=== PATIENT | female | born 1945 | race Caucasian/White ===

== ENCOUNTER 2023-12-24 16:40 | Emergency (ER) | payer OTHER, SELFPAY ==
--- NOTE | ~2023-12-24 | XR_ITS ---
XR shoulder RT min 2V DATE: 12/24/2023 17:43 INDICATION: Fall today. Proximal humerus pain TECHNIQUE: 2 views, AP and near projections COMPARISON: None FINDINGS: There is a comminuted fracture the proximal humerus including longitudinal fracture through the greater tuberosity and transverse fracture through the head of the humerus. No dislocation is no shonda. Normal alignment at the acromioclavicular joint. There is atelectasis at the right lung base. Diffuse osteopenia. IMPRESSION: Comminuted right proximal humeral fracture including relatively nondisplaced transverse h umeral head fracture and longitudinal fracture and mild superolateral displacement of the greater tub erosity Reviewed, dictated and finalized at location J. IMPRESSION: Comminuted right proximal humeral fracture including relatively non displaced transverse humeral head fracture and longitudinal fracture and mild s uperolateral displacement of the greater tuberosity
[2023-12-24 17:02] VITALS: BP 155/80; PULSE 71; RESP 19; TEMP 36.4; O2SAT 98
--- NOTE | 2023-12-24 17:37 | ED.UPPEXIN ---
HPI - Extremity Injury (Upper) General Chief Complaint: Extremity Injury, Upper Stated Complaint: right shoulder injury/cut on right arm Time Seen by Provider: 12/24/23 17:13 Source: family () and RN notes reviewed Mode of arrival: ambulatory Limitations: dementia History of Present Illness HPI narrative: presents patient today complaining of an injury to her right shoulder. Approximately 1 hour prior to arrival, patient got up off the couch, tripped on her shoe, and fell onto her right shoulder onto carpeted floor. No head injury or loss of consciousness. Patient has been grabbing her shoulder and grimacing. She has some significant dementia. Related Data Home Medications Medication Instructions Recorded Confirmed amlodipine 5 mg tablet 5 mg PO DAILY 12/24/23 12/24/23 memantine 5 mg tablet 5 mg PO DAILY 12/24/23 12/24/23 Allergies Allergy/AdvReac Type Severity Reaction Status Date / Time No Known Allergies Allergy Verified 12/24/23 17:13 Review of Systems Review of Systems: MUSCULOSKELETAL: Denies back pain, or myalgia.+ right shoulder injury Unable to complete due to dementia [facility] Past Medical History Medical History (Updated 12/24/23 @ 18:08 by Mary Anne Coles, [facility], ) Alzheimer's dementia Comments At time of signature, I have reviewed and agree with nursing past medical, surgical, social and family history unless otherwise noted. Please see nursing chart for further information. There is no relevant family history pertinent to the presenting complaint Exam Narrative: GENERAL: Well-appearing, well-nourished, and in no acute distress. HEAD: Normocephalic, atraumatic. EYES: EOMI. PERRL. No redness or drainage. Conjunctivae normal. ENT: Mucous membranes pink and moist. NECK: Normal AROM. CHEST: No respiratory distress. EXTREMITIES: Right shoulder: Tender to palpation. Patient grabbing shoulder grimacing in pain. Right Elbow, wrist, hand do not seem to elicit pain response. No edema or ecchymosis to the right arm. Patient does grimace with attempt of passive range of motion of the shoulder. SKIN: Warm, dry, no rash. Capillary refill normal. Normal skin turgor. NEURO: No focal deficits. Alert and oriented x self only. Gait somewhat unsteady. Patient cannot follow commands. Course Course Level of Care: Express Care Visit Vital Signs Vital signs: Vital Signs Temperature 97.5 F L 12/24/23 17:02 Pulse Rate 71 12/24/23 17:02 Respiratory Rate 19 12/24/23 17:02 Blood Pressure 155/80 H 12/24/23 17:02 Pulse Oximetry 98 12/24/23 17:02 Oxygen Delivery Room Air 12/24/23 17:02 Temperature 97.5 F L 12/24/23 17:02 Pulse Rate 71 12/24/23 17:02 Respiratory Rate 19 12/24/23 17:02 Blood Pressure 155/80 H 12/24/23 17:02 Pulse Oximetry 98 12/24/23 17:02 Oxygen Delivery Room Air 12/24/23 17:02 Reviewed MDM - Extremity Injury (Upper) MDM Narrative Medical decision making narrative: X-ray results show a comminuted fracture of the proximal humerus. Patient was tried in a sling and, but kept removing it due to her severe dementia, she cannot be reasoned with. She was then placed in a shoulder immobilizer, which may be more apt to keep her arm in place. Both were sent home with patient. Has been has been instructed to call on Tuesday and schedule an orthopedic appointment for close follow up and further evaluation. Disc and copy of report provided. Differential Diagnosis Differential diagnosis: Likely dislocation of shoulder, fracture of humerus, fracture of clavicle and other (Contusion) Imaging Data Radiologist's impression: ITS Impressions Shoulder X-Ray 12/24/23 17:58 IMPRESSION: Comminuted right proximal humeral fracture including relatively nondisplaced transverse humeral head fracture and longitudinal fracture and mild superolateral displacement of the greater tuberosity Critical Care Time Criticnaseem
== END 2023-12-24 18:15 | disposition home or self-care (01) ==
PROVIDERS: Emergency Provider Nurse Practitioner; PCP Internal Medicine Geriatric Medicine
DX: S42.424A Nondisplaced comminuted supracondylar fracture without intercondylar fracture of right humerus, initial encounter for closed fracture (principal); W18.09XA Striking against other object with subsequent fall, initial encounter; G30.9 Alzheimer's disease, unspecified; F02.80 Dementia in other diseases classified elsewhere, unspecified severity, without behavioral disturbance, psychotic disturbance, mood disturbance, and anxiety
CPT/HCPCS: 73030; 99214; A4565; G0463